=== PATIENT | male | born 1990 | race African-American/Black ===

== ENCOUNTER → 2018-08-29 | Emergency (ER) | payer SELFPAY ==
[~2018-08-29] VITALS: Ht 172.7 cm; Wt 68.0 kg
[~2018-08-29] MED LIST: AMOXICILLIN500 M2 PO; ANUSOL-HC25 MG R; AUGMENTIN 875-875 MG PO; BACTRIM DS 8001 TA1 PO; CORTISPORIN SUS10 ML OT; CYCLOBENZAPRINE10 MG PO; FLEXERIL10 MG PO; HYDROCODONE BIT1 T11 PO; IBU800 MG PO; KEFLEX500 MG PO; MOTRIN800 MG PO; Motrin,Rufen800 MG PO; NAPROSYN500 MG PO; NKHM; NORCO 325 MG-51 TAB PO; PARAFON FORTE500 MG PO; VIBRAMYCIN100 MG PO; VICODIN 5/500 505 MG PO; ZOFRAN ODT4 MG SL; Zofran4 MG PO
== END ==
LOC: ED 22:21
DX: J02.9 Acute pharyngitis, unspecified (principal); R51 Headache; R05 Cough; Z53.21 Procedure and treatment not carried out due to patient leaving prior to being seen by health care provider

== ENCOUNTER → 2018-10-11 | Emergency (ER) | payer OTHER ==
[~2018-10-11] VITALS: Ht 172.7 cm; Wt 65.8 kg
[2018-10-11 08:15] LABS: BASO % 0.5 % (0.0-1.0); EOS # 0.1 10*3/uL (0.0-0.4); EOS % 1.5 % (1.0-4.0); HEMATOCRIT 44.1 % (42.0-52.0); HEMOGLOBIN 14.8 g/dl (14.0-18.0); LYMPH # 1.4 10*3/uL (1.3-4.4); LYMPH % 23.5 % (27.0-41.0); MEAN CELL VOLUME 89.5 fl (80.0-94.0); MEAN CORPUSCULAR HGB CONC 33.6 g/dl (33.0-37.0); MEAN PLATELET VOLUME 9.8 fl (9.6-12.3); MONO # 0.4 10*3/uL (0.1-1.0); MONO % 6.9 % (3.0-9.0); NEUT % 67.4 % (47.0-73.0); PLATELET COUNT AUTOMATED 220 10*3/uL (130-400); RED BLOOD COUNT 4.93 10*6/uL (4.50-5.90); RED CELL DISTRI WIDTH 12.6 % (0-14.5)
[2018-10-11 08:25] LABS: BUN 9 mg/dl (7-24); CHLORIDE 105 mmol/L (98-107); CREATININE 1.18 mg/dL (0.70-1.30); POTASSIUM 3.9 mmol/L (3.5-5.1); SODIUM 142 mmol/L (136-145)
[2018-10-11 08:27] LABS: BILIRUBIN NEGATIVE (NEGATIVE); BLOOD NEGATIVE (NEGATIVE); CLARITY CLEAR (CLEAR); COLOR YELLOW (YELLOW); GLUCOSE NEGATIVE (NEGATIVE); KETONE NEGATIVE (NEGATIVE); LEUKO ESTERASE NEGATIVE (NEGATIVE); NITRITE NEGATIVE (NEGATIVE); SPECIFIC GRAVITY 1.025 (1.005-1.030); UROBILINOGEN 0.2 E.U./dl (0.2-1.0)
[2018-10-11 08:41] LABS: BACTERIA TRACE; MUCOUS 1+
== END ==
LOC: ED 07:44
PROVIDERS: Emergency Medicine
DX: K52.9 Noninfective gastroenteritis and colitis, unspecified (principal)

== ENCOUNTER 2018-10-25 08:21 | Emergency (ER) | payer OTHER ==
[~2018-10-25] VITALS: Ht 172.7 cm; Wt 68.0 kg
[~2018-10-25 08:21] MED LIST changes: -ANUSOL-HC25 MG R
[2018-10-25] MEDS ORDERED: Motrin,Rufen800 MG PO (08:44)
[2018-10-25] MEDS ORDERED: ANUSOL-HC25 MG R (08:44)
== END 2018-10-25 08:49 | disposition home or self-care (01) ==
LOC: ED 08:21
DX: K64.4 Residual hemorrhoidal skin tags (principal)

== ENCOUNTER 2019-11-26 18:00 | Emergency (ER) | payer OTHER ==
[~2019-11-26] VITALS: Ht 172.7 cm; Wt 68.0 kg
[~2019-11-26 18:00] MED LIST changes: +ANUSOL-HC25 MG R
== END 2019-11-26 19:22 | disposition home or self-care (01) ==
LOC: ED 18:00
DX: J06.9 Acute upper respiratory infection, unspecified (principal); Z79.899 Other long term (current) drug therapy

== ENCOUNTER 2020-09-19 10:55 | Emergency (ER) | payer OTHER ==
[~2020-09-19] VITALS: Ht 172.7 cm; Wt 68.0 kg
[2020-09-19] MEDS ORDERED: Motrin,Rufen800 MG PO (12:37)
== END 2020-09-19 12:42 | disposition home or self-care (01) ==
LOC: ED 10:55
DX: R07.9 Chest pain, unspecified (principal)

== ENCOUNTER → 2020-10-09 | Outpatient (CLI) | payer OTHER | END | disposition home or self-care (01) | LOC: COVID19 13:54 | PROVIDERS: ATTEND Family Medicine | DX: R50.9 Fever, unspecified (principal); Z20.828 Contact with and (suspected) exposure to other viral communicable diseases ==

== ENCOUNTER 2021-05-21 18:51 | Emergency (ER) | payer OTHER ==
[~2021-05-21] VITALS: Ht 172.7 cm; Wt 68.0 kg
[2021-05-21] MEDS ORDERED: ACID-PEP20 MG PO (20:00)
== END 2021-05-21 20:07 | disposition home or self-care (01) ==
LOC: ED 18:51
DX: R19.7 Diarrhea, unspecified (principal); Z79.899 Other long term (current) drug therapy

== ENCOUNTER 2024-01-14 19:03 | Emergency (ER) | payer MEDICAID ==
[~2024-01-14] VITALS: Ht 172.7 cm; Wt 70.3 kg
[~2024-01-14 19:03] MED LIST changes: +ACID-PEP20 MG PO
[2024-01-14] MEDS ORDERED: VIBRAMYCIN100 MG PO (19:48)
== END 2024-01-14 20:04 | disposition home or self-care (01) ==
LOC: ED 19:03
DX: L02.31 Cutaneous abscess of buttock (principal); Z79.899 Other long term (current) drug therapy

== ENCOUNTER 2024-01-16 18:04 | Emergency (ER) | payer MEDICAID ==
[~2024-01-16] VITALS: Ht 172.7 cm; Wt 70.3 kg
== END 2024-01-16 18:34 | disposition home or self-care (01) ==
LOC: ED 18:04
DX: Z48.01 Encounter for change or removal of surgical wound dressing (principal)

== ENCOUNTER 2024-04-21 17:37 | Emergency (ER) | payer SELFPAY ==
[~2024-04-21] VITALS: Ht 170.1 cm; Wt 68.0 kg
[2024-04-21] MEDS ORDERED: VIBRAMYCIN100 MG PO (18:55)
[2024-04-21] MEDS ORDERED: Doxycycline Hyclate 100 MG CAP PO ONE (19:00)
[2024-04-21] MEDS ORDERED: Acetaminophen/Hydrocodone 5 MG/325 MG TABLET PO ONE (19:00)
== END 2024-04-21 19:07 | disposition home or self-care (01) ==
LOC: ED 17:37
DX: L02.31 Cutaneous abscess of buttock (principal)